=== PATIENT | female | born 1945 | race Caucasian/White ===

== ENCOUNTER 2020-10-27 16:12 | Observation (INO) | payer MEDICARE ==
[~2020-10-27] VITALS: Ht 152.4 cm; Wt 91.7 kg
[~2020-10-27 16:12] MED LIST: ASPI-496 PO; B12/1TAB2 PO; CLOP75TA PO; INSU100C SQ-INSULIN; INSU100V8 SQ; LEVO300T4 PO; LOSA1TAB22 PO; LOSA25TA25 PO; METO25TA91 PO; PRAV10TA2 PO; PRAV80TA2 PO
--- NOTE | 2020-10-27 16:34 | NUR ---
PT BIB [facility] WITH C/O RIGHT UPPER QUADRANT ABDOMINAL PAIN. PT STATED THAT IT STARTED AT 0500 THIS MORNING. PT EXPERIENCED THIS PAIN EARLIER THIS WEEK, BUT IT RESOLVED ON ITS OWN. PT DENIED ANY PAIN WITH URINATION, BLOOD IN STOOL OR URINE, OR N/V/D. PT TOOK 324MG CHEWABLE ASPIRIN PER [facility] DISPATCH.
[2020-10-27] MEDS ORDERED: HYDROmorphone 2 MG/ML, 1ML IVPush PRN (17:00)
[2020-10-27] MEDS ORDERED: ONDANSETRON 2MG/ML, 2ML IVPush ONE (17:00)
--- NOTE | 2020-10-27 17:15 | NUR ---
ULTRA SOUNDS AT BEDSIDE.
[2020-10-27] MEDS ORDERED: HYDROmorphone 1 MG/ML, 1ML INJ ONE (17:24)
[2020-10-27] MEDS ORDERED: ONDANSETRON 2MG/ML, 2ML ONE ×2 (17:24→20:28)
[2020-10-27 17:35] LABS: MEAN CORPUSCULAR HEMOGLOBIN 28.4 pg (27.0-34.8); MEAN CORPUSCULAR HGB CONC 33.6 g/dL (32.4-35.8); MEAN PLATELET VOLUME 7.5 fL (7.4-10.4); PLATELET COUNT 241 x10^3/uL (130-400); RED BLOOD COUNT 4.77 x10^6/uL (3.82-5.3); RED CELL DISTRIBUTION WIDTH 13.7 % (9.6-15.2)
[2020-10-27 17:36] LABS: MD YES
[2020-10-27 17:48] LABS: ALANINE AMINOTRANSFERASE 23 U/L (12-78); ALBUMIN 2.9 g/dL (3.4-5.0); ANION GAP 9 mmol/L (5-15); CALCIUM 9.2 mg/dL (8.5-10.1); CHLORIDE 103 mmol/L (98-107); CREATININE 0.85 mg/dL (0.55-1.02)
[2020-10-27 17:51] LABS: ALKALINE PHOSPHATASE 102 U/L (45-117); BILIRUBIN,TOTAL 0.6 mg/dL (0.2-1.0); TOTAL PROTEIN 6.6 g/dL (6.4-8.2)
[2020-10-27 17:57] LABS: <PLATELET ESTIMATE> ADEQUATE; <PLT MORPHOLOGY> NORMAL PLT MORPH; <RBC MORPHOLOGY> NORMAL; BAND#(MANUAL) 0.27 x10^3/uL; BANDS%(MANUAL) 2 % (0-7); LYMPH#(MANUAL) 0.68 x10^3/uL (1-3.4); LYMPHS% (MANUAL) 5 % (22-44); MONOS#(MANUAL) 0.54 x10^3/uL (0.3-2.7); MONOS% (MANUAL) 4 % (2-9); SEG#(MANUAL) 12.02 x10^3/uL (1.8-6.8); SEGS% (MANUAL) 89 % (42-75)
[2020-10-27 18:00] LABS: MICROSCOPIC NOT IND
--- NOTE | 2020-10-27 18:15 | NUR ---
MARIAM ERWIN AT BEDSIDE TO DISCUSS POC
--- NOTE | 2020-10-27 18:49 | NUR ---
REPORT TO HARDY CASTRO
--- NOTE | 2020-10-27 19:00 | NUR ---
PT REQUEST BS BE TAKEN, BS 169 WITH HOSPITAL GLUCOMETER. PATIENT UPDATED ON PLAN OF CARE. NO NOTED ADDITIONAL NEEDS AT THIS TIME. EKG COMPLETED, AWAITING RESULTS FROM COVID SWAB.
--- NOTE | 2020-10-27 19:10 | NUR ---
PATIENT SWAB COVID COMPLETED. AWAITING RESULTS PRIOR TO SURGERY
[2020-10-27] MEDS ORDERED: CEFTRIAXONE PMX 1GM/50ML 50 ML ONE (19:21)
--- NOTE | 2020-10-27 19:29 | NUR ---
ROCEPHIN IN NOV WAS NOT ADMINISTERED. ANTIBIOTIC ORDERED FROM PHARMACY, WILL AWAIT MEDICATION FOR ADMINISTRATION.
[2020-10-27] MEDS ORDERED: SODIUM CHLORIDE FLUSH 10ML SYR IVF PRN (19:30)
[2020-10-27] MEDS ORDERED: CEFOTETAN PMX 1GM/50ML 50 ML IVPB ONE (19:30)
[2020-10-27] MEDS ORDERED: SODIUM CHLORIDE 0.9% 1,000 ML IV ONE (19:30)
[2020-10-27] MEDS ORDERED: BUPIVACAINE/PF 0.5% ONE (19:38)
[2020-10-27] MEDS ORDERED: EPINEPHRINE 1 MG/ML, 1ML ONE (19:39)
--- NOTE | 2020-10-27 19:44 | NUR ---
REPORT GIVEN TO ADMISSION RN
--- NOTE | 2020-10-27 19:46 | NUR ---
ANTIBIOTICS STARTED. PATIENT VERBALIZED UNDERSTANDING OF THERAPY. PATIENT UPDATED ON PLAN OF CARE. NO NOTED ACUTE DISTRESS. PATIENT'S VITAL SIGNS STABLE. WILL CONTINUE TO MONITOR.
--- NOTE | 2020-10-27 19:58 | NUR ---
REPORT GIVEN TO CORRECTIONAL THERAPY TEACHERMATTHEW JENKINS. PATIENT TAKEN TO SURGERY VIA GURNEY.
[2020-10-27] MEDS ORDERED: FENTANYL PF 250 MCG/5ML ONE (20:03)
[2020-10-27] MEDS ORDERED: KETOROLAC 30 MG/1 ML ONE (20:28)
[2020-10-27] MEDS ORDERED: PROPOFOL 10 MG/ML, 20ML ONE (20:28)
[2020-10-27] MEDS ORDERED: GLYCOPYRROLATE 0.2MG/1ML, 5ML ONE (20:28)
[2020-10-27] MEDS ORDERED: ROCURONIUM 10 MG/ML,10ML ONE (20:28)
[2020-10-27] MEDS ORDERED: NEOSTIGMINE 1 MG/ML, 10ML ONE (20:28)
[2020-10-27] MEDS ORDERED: DEXAMETHASONE 4 MG/ML, 1ML ONE (20:28)
[2020-10-27] MEDS ORDERED: BUPIVACAINE/PF 0.5% INFIL ONE (20:51)
[2020-10-27] MEDS ORDERED: FENTANYL PF 100 MCG/2ML IV PRN (21:30)
[2020-10-27] MEDS ORDERED: ONDANSETRON 2MG/ML, 2ML IVPush PRN ×2 (21:30→22:30)
[2020-10-27] MEDS ORDERED: MEPERIDINE/PF 25MG/0.5ML IVPush PRN (21:30)
[2020-10-27] MEDS ORDERED: OXYcodone 5 MG/5 ML ORAL.SOL UDC PO PRN (21:30)
[2020-10-27] MEDS ORDERED: hydrALAzine 20 MG/ML, 1ML IV PRN (21:30)
[2020-10-27] MEDS ORDERED: ACETAMINOPHEN 325 MG TABLET PO PRN (21:30)
[2020-10-27] MEDS ORDERED: LABETALOL 5MG/ML, 20ML IV PRN (21:30)
[2020-10-27] MEDS ORDERED: HYDROmorphone 1 MG/ML, 1ML INJ IVPush PRN (21:30)
[2020-10-27] MEDS ORDERED: METHOCARBAMOL 1,000 MG in DEXTROSE 5% 100 ML IV PRN (21:30)
[2020-10-27] MEDS ORDERED: PROMETHAZINE 25 MG/ML, 1ML IVPush PRN (21:30)
[2020-10-27 22:09] VITALS: BP 115/68
[2020-10-27] MEDS ORDERED: DIPHENHYDRAMINE 50 MG/ML, 1ML IVPush PRN (22:30)
[2020-10-27] MEDS ORDERED: MORPHINE SULFATE 4 MG/ML, 1ML IVPush PRN (22:30)
[2020-10-27] MEDS ORDERED: KETOROLAC 30 MG/1 ML IV PRN (22:30)
[2020-10-27] MEDS ORDERED: HYDROcodone/APAP 5/325 TABLET PO PRN (22:30)
[2020-10-27] MEDS ORDERED: ENOXAPARIN 40 MG/0.4 ML SQ SCH (23:00)
[2020-10-27] MEDS: LACTATED RINGERS 1,000 ML IV SCH (23:39)
[2020-10-28 00:28] VITALS: BP 105/66
[2020-10-28 01:00] VITALS: BP 116/57
[2020-10-28 03:23] VITALS: BP 108/69
[2020-10-28 06:55] VITALS: BP 116/68
[2020-10-28] MEDS: LACTATED RINGERS 1,000 ML IV SCH (07:59)
== END 2020-10-28 10:52 | disposition home or self-care (01) ==
LOC: ED 17:50 → EDIP 19:38 → INTOOBSV 19:38 → 4NE 22:01
PROVIDERS: ADMIT Surgery; ATTEND Surgery
DX: K80.00 Calculus of gallbladder with acute cholecystitis without obstruction (principal); Z20.828 Contact with and (suspected) exposure to other viral communicable diseases; E78.00 Pure hypercholesterolemia, unspecified; E11.9 Type 2 diabetes mellitus without complications; Z90.710 Acquired absence of both cervix and uterus; Z79.899 Other long term (current) drug therapy
CPT/HCPCS: 36415; 47562; 76700; 80053; 81003; 82962; 83690; 85025; 87635; 88304; 93005; 96361; 96365; 96372; 96375; 99285; C1729; G0378; J0171; J1100; J1170; J1650; J1885; J2405; J2704; J2710; J3010; J7120; S0020

== ENCOUNTER 2020-11-04 19:47 | Inpatient (IN) | payer MEDICARE ==
[~2020-11-04] VITALS: Ht 172.7 cm; Wt 83.8 kg
--- NOTE | 2020-11-04 20:20 | NUR ---
PT CAME IN CO RAPID BREATHING AND HI HR. PT STATES SHE HAD HER GALLBLADDER REMOVED ABOUT A WEEK AGO AND EVERYTHING HAS BEEN FINE BUT "TODAY I JUST ALL OF A SUDDEN FELT LIKE I COULDNT BREATH AND I WAS HAVING AN PANIC ATTACK OR SOMETHING". PT RESTING IN [facility]. EKG COMPLETE. CONNECTED TO ALL MONITORING EQUIPMENT
[2020-11-04] MEDS ORDERED: SODIUM CHLORIDE 0.9% 1,000ML IVBOLUS ONE ×2 (20:30→22:30)
[2020-11-04] MEDS ORDERED: SODIUM CHLORIDE 0.9% 1,000 ML IV ONE (20:30)
[2020-11-04] MEDS ORDERED: SODIUM CHLORIDE FLUSH 10ML SYR IVF ONE (20:30)
--- NOTE | 2020-11-04 20:49 | NUR ---
PT STATES "IM STARTING TO FEEL BETTER".
[2020-11-04 21:01] LABS: BASOPHILS % (AUTO) 0 % (0-1); EOSINOPHILS % (AUTO) 0 % (1-7); LYMPHOCYTES % (AUTO) 5 % (22-44); MEAN CORPUSCULAR HEMOGLOBIN 29.2 pg (27.0-34.8); MEAN CORPUSCULAR HGB CONC 33.1 g/dL (32.4-35.8); MEAN PLATELET VOLUME 7.3 fL (7.4-10.4); MONOCYTES % (AUTO) 9 % (2-9); NEUTROPHILS % (AUTO) 85 % (42-75); PLATELET COUNT 398 x10^3/uL (130-400); RED BLOOD COUNT 4.56 x10^6/uL (3.82-5.3); RED CELL DISTRIBUTION WIDTH 14.4 % (9.6-15.2)
[2020-11-04 21:02] LABS: MD NO
[2020-11-04 21:04] LABS: ALANINE AMINOTRANSFERASE 24 U/L (12-78); ALBUMIN 2.9 g/dL (3.4-5.0); CALCIUM 9.7 mg/dL (8.5-10.1); CREATININE 1.37 mg/dL (0.55-1.02)
[2020-11-04 21:08] LABS: ALKALINE PHOSPHATASE 161 U/L (45-117); BILIRUBIN,TOTAL 0.5 mg/dL (0.2-1.0); TOTAL PROTEIN 7.4 g/dL (6.4-8.2); TROPONIN I < 0.015 ng/mL (0.000-0.045)
[2020-11-04 21:12] LABS: ANION GAP 21 mmol/L (5-15); CHLORIDE 106 mmol/L (98-107)
--- NOTE | 2020-11-04 21:34 | NUR ---
PT UP FOR RECHECK AT THIS TIME. PT RESTING IN [facility]. NO NEEDS AT THIS TIME
--- NOTE | 2020-11-04 22:20 | NUR ---
NEED REQUIRED IV FOR CTA CHEST.
--- NOTE | 2020-11-04 23:23 | NUR ---
PT AT CT
[2020-11-04] MEDS ORDERED: OMNIPAQUE 350 MG/ML, 75ML BOTTLE ONE (23:31)
[2020-11-04 23:55] LABS: MICROSCOPIC AUTO
--- NOTE | 2020-11-05 00:27 | NUR ---
RN DID REPEAT EKG
[2020-11-05] MEDS ORDERED: SODIUM CHLORIDE 0.9% 1,000 ML IV ONE (01:00)
[2020-11-05] MEDS ORDERED: SODIUM CHLORIDE FLUSH 10ML SYR IVF PRN (01:00)
[2020-11-05] MEDS ORDERED: DEXTROSE 4 GM TAB.CHEW PO PRN (01:30)
[2020-11-05] MEDS ORDERED: DEXTROSE 50%, 50ML SYRINGE IVPush PRN (01:30)
[2020-11-05] MEDS ORDERED: GLUCAGON 1 MG IM PRN (01:30)
[2020-11-05] MEDS ORDERED: hydrALAzine 20 MG/ML, 1ML IVPush PRN (02:00)
[2020-11-05] MEDS ORDERED: ACETAMINOPHEN 325 MG TABLET PO PRN (02:00)
[2020-11-05] MEDS ORDERED: ONDANSETRON 2MG/ML, 2ML IVPush PRN (02:00)
[2020-11-05 02:30] LABS: PH, VENOUS 7.309 pH (7.320-7.420)
[2020-11-05 02:36] LABS: CREATININE,URINE RANDOM 50.7 mg/dL
[2020-11-05 03:07] LABS: ACETONE, SERUM Large (80mg/dL) (Negative)
[2020-11-05 03:08] VITALS: BP 117/68
[2020-11-05] MEDS: SODIUM CHLORIDE 0.9% 1,000 ML IV SCH ×3 (04:06→20:16)
[2020-11-05] MEDS: HEPARIN 5,000 UNITS/ML, 1ML SQ SCH ×3 (04:07→17:37)
[2020-11-05] MEDS: INSULIN GLARGINE 100 UNITS/ML, PEN SQ-INSULIN SCH ×3 (04:33→20:19)
[2020-11-05] MEDS: METOPROLOL SUCCINATE 25 MG TAB.ER.24H PO SCH (05:57)
[2020-11-05] MEDS: INSULIN LISPRO 100 UNITS/ML, PEN SQ-INSULIN SCH ×4 (06:40→20:18)
[2020-11-05 07:06] VITALS: BP 112/69
[2020-11-05 08:09] LABS: ANION GAP 11 mmol/L (5-15); CALCIUM 9.3 mg/dL (8.5-10.1); CHLORIDE 113 mmol/L (98-107)
[2020-11-05 08:10] LABS: CREATININE 0.81 mg/dL (0.55-1.02)
[2020-11-05] MEDS: SODIUM CHLORIDE FLUSH 10ML SYR IVF SCH ×2 (08:34→21:00)
[2020-11-05 12:56] VITALS: BP 122/78
[2020-11-05 15:44] LABS: ANION GAP 8 mmol/L (5-15); CHLORIDE 113 mmol/L (98-107)
[2020-11-05 18:52] VITALS: BP 125/71
[2020-11-05] MEDS ORDERED: ATORVASTATIN 40 MG TABLET PO SCH (21:00)
[2020-11-05] MEDS ORDERED: ASPIRIN 81 MG TABLET EC PO SCH (21:00)
[2020-11-06 00:20] VITALS: BP 126/73
[2020-11-06] MEDS: HEPARIN 5,000 UNITS/ML, 1ML SQ SCH ×2 (02:16→09:14)
[2020-11-06] MEDS: METOPROLOL SUCCINATE 25 MG TAB.ER.24H PO SCH (05:27)
[2020-11-06 05:29] LABS: BASOPHILS % (AUTO) 1 % (0-1); EOSINOPHILS % (AUTO) 2 % (1-7); LYMPHOCYTES % (AUTO) 32 % (22-44); MEAN CORPUSCULAR HEMOGLOBIN 28.9 pg (27.0-34.8); MEAN CORPUSCULAR HGB CONC 33.8 g/dL (32.4-35.8); MEAN PLATELET VOLUME 7.1 fL (7.4-10.4); MONOCYTES % (AUTO) 11 % (2-9); NEUTROPHILS % (AUTO) 54 % (42-75); PLATELET COUNT 231 x10^3/uL (130-400); RED BLOOD COUNT 3.81 x10^6/uL (3.82-5.3); RED CELL DISTRIBUTION WIDTH 14.5 % (9.6-15.2)
[2020-11-06 05:43] LABS: CHLORIDE 113 mmol/L (98-107)
[2020-11-06 05:46] LABS: MD NO
[2020-11-06 06:04] LABS: ALANINE AMINOTRANSFERASE 18 U/L (12-78); ALBUMIN 2.2 g/dL (3.4-5.0); ALKALINE PHOSPHATASE 111 U/L (45-117); ANION GAP 8 mmol/L (5-15); BILIRUBIN,TOTAL 0.4 mg/dL (0.2-1.0); CALCIUM 8.6 mg/dL (8.5-10.1); TOTAL PROTEIN 5.5 g/dL (6.4-8.2)
[2020-11-06] MEDS: INSULIN LISPRO 100 UNITS/ML, PEN SQ-INSULIN SCH ×2 (07:00→11:37)
[2020-11-06] MEDS: SODIUM CHLORIDE 0.9% 1,000 ML IV SCH (07:12)
[2020-11-06 07:49] VITALS: BP 128/79
[2020-11-06] MEDS ORDERED: POTASSIUM CHLORIDE 20 MEQ TAB.ER.PRT PO ONE (08:00)
[2020-11-06] MEDS ORDERED: POTASSIUM PHOSPHATE 22 MEQ in SODIUM CHLORIDE 0.9% 500 ML IV ONE (08:00)
[2020-11-06] MEDS: SODIUM CHLORIDE FLUSH 10ML SYR IVF SCH (09:00)
[2020-11-06] MEDS: INSULIN GLARGINE 100 UNITS/ML, PEN SQ-INSULIN SCH (09:13)
[2020-11-06 13:10] VITALS: BP 135/65
[2020-11-06] MEDS ORDERED: INSULIN GLARGINE 100 UNITS/ML, PEN SQ-INSULIN SCH (21:00)
== END 2020-11-06 14:06 | disposition home or self-care (01) | DRG 638 ==
LOC: ED 11-05 01:06 → EDIP 11-05 01:17 → 5SO 11-05 02:58 → DCLOUNGE 11-06 13:56
PROVIDERS: ADMIT Internal Medicine; ATTEND Family Medicine
DX: E10.10 Type 1 diabetes mellitus with ketoacidosis without coma (principal); N17.9 Acute kidney failure, unspecified; E03.9 Hypothyroidism, unspecified; E86.0 Dehydration; Z79.4 Long term (current) use of insulin; Z90.49 Acquired absence of other specified parts of digestive tract; Z90.710 Acquired absence of both cervix and uterus; Z88.2 Allergy status to sulfonamides; Z88.5 Allergy status to narcotic agent
CPT/HCPCS: 71045; 71275; 80048; 80053; 81001; 82010; 82570; 82803; 82962; 83735; 83880; 84100; 84300; 84443; 84484; 85025; 85379; 93005; 96360; 99285; G0378; J1644; Q9967; J1815; J7030; J7040

== ENCOUNTER 2021-05-15 19:12 | Inpatient (IN) | payer MEDICARE ==
[~2021-05-15] VITALS: Ht 152.4 cm; Wt 74.4 kg
[~2021-05-15 19:12] MED LIST changes: +FEXO180T72 PO; +HYDR25TA6 PO; +INSU100I13 SQ-INSULIN; +LOSA50TA14 PO; +ROSU40TA PO
--- NOTE | 2021-05-15 19:27 | NUR ---
PT STATES SHE WAS FEELING WEAK TODAY. ASSISTED HER TO GROUND. PT GAVE HERSEFL 2 DOSES OF 30UNITS OF HUMAOG AT 1200 & 1900. PT ALSO C/O SORE THROAT, COUGH, BODY ACHES X 3 DAYS. +VAX IN NOVEMBER. PT GIVEN 800CC NS BY EMS. FOR 70/40 BP AT HOME.
--- NOTE | 2021-05-15 19:55 | NUR ---
PT BACK FROM CT, NSB INFUSING WELL. WILL CTM.
--- NOTE | 2021-05-15 19:56 | NUR ---
CXR AT BS.
[2021-05-15] MEDS ORDERED: ONDANSETRON 2MG/ML, 2ML IVPush ONE (20:00)
[2021-05-15] MEDS ORDERED: SODIUM CHLORIDE FLUSH 10ML SYR IVF ONE (20:00)
[2021-05-15] MEDS ORDERED: SODIUM CHLORIDE 0.9% 1,000ML IVBOLUS ONE ×2 (20:00→22:00)
[2021-05-15] MEDS ORDERED: ONDANSETRON 2MG/ML, 2ML ONE (20:01)
--- NOTE | 2021-05-15 20:20 | NUR ---
PT REMAINS HYPOTENSIVE AFTER 1ST LITER. NATIONAL SALES MANAGER AWARE, VO FOR 2ND LITER. WILL CTM. FAMILY ATBS. AWARE OF NPO STATUS.
--- NOTE | 2021-05-15 21:27 | NUR ---
LABS OBTAINED & SENT
[2021-05-15 21:49] LABS: ALANINE AMINOTRANSFERASE 23 U/L (12-78); ALBUMIN 2.5 g/dL (3.4-5.0); ANION GAP 17 mmol/L (5-15); CALCIUM 8.8 mg/dL (8.5-10.1); CHLORIDE 112 mmol/L (98-107); CREATININE 1.34 mg/dL (0.55-1.02)
[2021-05-15 21:50] LABS: BASOPHILS % (AUTO) 0 % (0-1); EOSINOPHILS % (AUTO) 0 % (1-7); LYMPHOCYTES % (AUTO) 7 % (22-44); MEAN CORPUSCULAR HEMOGLOBIN 30.2 pg (27.0-34.8); MEAN CORPUSCULAR HGB CONC 33.2 g/dL (32.4-35.8); MEAN PLATELET VOLUME 7.4 fL (7.4-10.4); MONOCYTES % (AUTO) 8 % (2-9); NEUTROPHILS % (AUTO) 85 % (42-75); PLATELET COUNT 218 x10^3/uL (130-400); RED BLOOD COUNT 4.27 x10^6/uL (3.82-5.3)
[2021-05-15 21:54] LABS: ALKALINE PHOSPHATASE 183 U/L (45-117); BILIRUBIN,TOTAL 0.3 mg/dL (0.2-1.0); TOTAL PROTEIN 6.5 g/dL (6.4-8.2); TROPONIN I < 0.015 ng/mL (0.000-0.045)
[2021-05-15] MEDS ORDERED: CEFTRIAXONE 1,000 MG in DEXTROSE 5% 50 ML IVPB ONE (22:00)
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
--- NOTE | 2021-05-15 23:22 | NUR ---
PT STRAIGHT CATH FOR URINE. 800ML RETURN. SAMPLE OBTAINED & SENT.
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
[2021-05-15 23:49] LABS: MICROSCOPIC AUTO
[2021-05-16] VITALS (7 sets, daily range): BP systolic 96–129; BP diastolic 50–76
--- NOTE | 2021-05-16 00:22 | NUR ---
ADMITTING MD AT . GIVEN SANDWICH & WATER. AWARE OF PENDING ADMISSION. COVID SWAB OBTAINE & WALKED TO LAB.
[2021-05-16] MEDS ORDERED: BISACODYL 10 MG SUPP PR PRN (00:30)
[2021-05-16] MEDS ORDERED: ONDANSETRON ODT 4 MG PO PRN (00:30)
[2021-05-16] MEDS ORDERED: POLYETHYLENE GLYCOL 17 GM PACKET PO PRN (00:30)
[2021-05-16] MEDS: ACETAMINOPHEN 325 MG TABLET PO PRN ×2 (02:13→17:44)
[2021-05-16 05:12] LABS: ANION GAP 9 mmol/L (5-15); CALCIUM 8.5 mg/dL (8.5-10.1); CHLORIDE 110 mmol/L (98-107)
[2021-05-16 05:16] LABS: BASOPHILS % (AUTO) 0 % (0-1); EOSINOPHILS % (AUTO) 0 % (1-7); LYMPHOCYTES % (AUTO) 14 % (22-44); MEAN CORPUSCULAR HEMOGLOBIN 30.1 pg (27.0-34.8); MEAN CORPUSCULAR HGB CONC 33.4 g/dL (32.4-35.8); MEAN PLATELET VOLUME 7.5 fL (7.4-10.4); MONOCYTES % (AUTO) 12 % (2-9); NEUTROPHILS % (AUTO) 73 % (42-75); PLATELET COUNT 200 x10^3/uL (130-400); RED BLOOD COUNT 3.94 x10^6/uL (3.82-5.3); RED CELL DISTRIBUTION WIDTH 15.1 % (9.6-15.2); TROPONIN I < 0.015 ng/mL (0.000-0.045)
[2021-05-16] MEDS: METOPROLOL SUCCINATE 25 MG TAB.ER.24H PO SCH (05:21)
[2021-05-16] MEDS: INSULIN LISPRO 100 UNITS/ML, PEN SQ-INSULIN SCH ×4 (07:00→21:00)
[2021-05-16] MEDS: SENNA/DOCUSATE TABLET PO SCH (09:00)
[2021-05-16] MEDS ORDERED: INSULIN GLARGINE 100 UNITS/ML, PEN SQ-INSULIN SCH (09:00)
[2021-05-16] MEDS: [UNRECOGNIZED DRUG - REMARK] PO SCH (09:00)
[2021-05-16] MEDS: HYDROCHLOROTHIAZIDE 25 MG TABLET PO SCH (12:00)
[2021-05-16] MEDS: LOSARTAN 50MG TABLET PO SCH (12:00)
[2021-05-16] MEDS ORDERED: ASPIRIN 81 MG TABLET EC PO SCH (21:00)
[2021-05-16] MEDS: INSULIN GLARGINE 100 UNITS/ML, PEN SQ-INSULIN SCH (21:00)
[2021-05-16] MEDS ORDERED: PRAVASTATIN 40 MG TABLET PO SCH (21:00)
[2021-05-17 00:52] VITALS: BP 113/69
[2021-05-17 00:54] VITALS: BP 116/72
[2021-05-17 00:56] VITALS: BP 117/76
[2021-05-17] MEDS: METOPROLOL SUCCINATE 25 MG TAB.ER.24H PO SCH (05:38)
[2021-05-17 07:41] VITALS: BP 128/74
[2021-05-17] MEDS: SENNA/DOCUSATE TABLET PO SCH (08:39)
[2021-05-17] MEDS: [UNRECOGNIZED DRUG - REMARK] PO SCH (08:53)
[2021-05-17] MEDS: HYDROCHLOROTHIAZIDE 25 MG TABLET PO SCH (08:56)
[2021-05-17] MEDS: LOSARTAN 50MG TABLET PO SCH (08:57)
[2021-05-17] MEDS: INSULIN GLARGINE 100 UNITS/ML, PEN SQ-INSULIN SCH (08:57)
[2021-05-17] MEDS: INSULIN LISPRO 100 UNITS/ML, PEN SQ-INSULIN SCH ×2 (08:58→13:20)
[2021-05-17 12:27] VITALS: BP 106/67
== END 2021-05-17 17:06 | disposition home or self-care (01) | DRG 312 ==
LOC: ED 19:30 → EDIP 05-16 00:09 → 4WST 05-16 01:38
PROVIDERS: ADMIT Internal Medicine; ATTEND Hospitalist
DX: I95.1 Orthostatic hypotension (principal); G93.0 Cerebral cysts; E03.9 Hypothyroidism, unspecified; E10.65 Type 1 diabetes mellitus with hyperglycemia; E78.5 Hyperlipidemia, unspecified; I10 Essential (primary) hypertension; I95.9 Hypotension, unspecified; Z20.822 Contact with and (suspected) exposure to COVID-19; I25.10 Atherosclerotic heart disease of native coronary artery without angina pectoris; Z80.52 Family history of malignant neoplasm of bladder; I25.2 Old myocardial infarction; Z90.710 Acquired absence of both cervix and uterus; Z90.49 Acquired absence of other specified parts of digestive tract; Z80.42 Family history of malignant neoplasm of prostate; Z88.2 Allergy status to sulfonamides; Z88.5 Allergy status to narcotic agent
CPT/HCPCS: 36415; 70450; 71045; 80048; 80053; 81001; 82947; 82962; 84484; 85025; 87081; 87880; 93005; 93306; 93880; 96361; 96374; 96375; 99285; G0378; J0696; J2405; U0005; J1815; J7030; U0003